=== PATIENT | male | born 1985 | race Caucasian/White ===

== ENCOUNTER 2016-11-25 08:22 | Emergency (ER) | payer OTHER ==
[~2016-11-25] VITALS: Ht 190.5 cm; Wt 91.7 kg
[2016-11-25 08:40] LABS: POINT-OF-CARE METER ID UU13113702
[2016-11-25 09:12] LABS: EOSINOPHIL (%) 8.1 % (0-5); EOSINOPHIL COUNT 0.4 K/uL (0-0.3); HEMATOCRIT 42.5 % (38.0-50.0); IMMATURE GRANULOCYTE (%) 0.4 % (0.0-0.7); INSTRUMENT ABS NEUTROPHIL CT 2.7 K/uL; LYMPHOCYTE COUNT 1.9 K/uL (1.0-2.8); MCH 31.6 PG (29.0-34.0); MCHC 32.9 G/DL (30.0-36.0); MCV 95.9 FL (86-99); MEAN PLAT.VOLUME 9.4 uM^3 (9.0-12.4); MONOCYTE (%) 6.1 % (3-12); MONOCYTE COUNT 0.3 K/uL (0-0.8); NEUTROPHIL (%) 49.9 % (45-76); NEUTROPHIL COUNT 2.7 K/uL (1.8-6.4); PLATELET COUNT 243 K/uL (156-360); RBC DIS.WIDTH-CV 13.6 % (11.8-14.6); RBC DIS.WIDTH-SD 48.4 % (39-53); RED BLOOD COUNT 4.43 M/uL (4.00-5.50); WHITE BLOOD COUNT 5.4 K/uL (4.1-10.2)
[2016-11-25 09:23] LABS: CHLORIDE 109 mEq/L (99-109); POTASSIUM 3.9 mEq/L (3.7-5.4)
[2016-11-25 09:24] LABS: SODIUM 143 mEq/L (136-147)
[2016-11-25 09:25] LABS: GLUCOSE 91 mg/dL (70-99)
[2016-11-25 09:27] LABS: ANION GAP 5 MEQ/L (2-14)
[2016-11-25 09:28] LABS: SERUM ETHYL ALCOHOL < 10 mg/dL
[2016-11-25 09:29] LABS: GFR ESTIMATE (CALCULATED) > 59 mL/min/
[2016-11-25 09:30] LABS: UREA NITROGEN (BUN) 6 mg/dL (9-23)
[2016-11-25 10:52] LABS: BILIRUBIN NEGATIVE; BLOOD NEGATIVE; COLOR YELLOW ((YELLOW)); GLUCOSE (STRIP) NEGATIVE; KETONES NEGATIVE; LEUKOCYTES NEGATIVE; NITRITE NEGATIVE; PROTEIN (STRIP) NEGATIVE; UROBILINOGEN 0.2 MG/DL (0.2-1.0)
[2016-11-25 10:56] LABS: ADD MIUA? NO
[2016-11-25 10:57] VITALS: BP 120/79
[2016-11-25 11:01] LABS: AMPHETAMINE NEGATIVE (500 ng/mL); BARBITURATES NEGATIVE (200 ng/mL); BENZODIAZEPINES NEGATIVE (150 ng/mL); COCAINE NEGATIVE (150 ng/mL); INTERNAL CONTROLS VALID? YES; METHADONE NEGATIVE (200 ng/mL); METHAMPHETAMINE NEGATIVE (500 ng/mL); OPIATES (MORPHINE) NEGATIVE (100 ng/mL); OXYCODONE NEGATIVE (100 ng/mL); PHENCYCLIDINE NEGATIVE (25 ng/mL); PROPOXYPHENE NEGATIVE (300 ng/mL); THC CANNABINOIDS NEGATIVE (50 ng/mL); TRICYCLIC ANTIDEPRESSANTS NEGATIVE (300 ng/mL)
== END 2016-11-25 11:20 | disposition left against medical advice (07) ==
LOC: EME 08:22
PROVIDERS: Emergency Medicine
DX: R56.9 Unspecified convulsions (principal); Z98.2 Presence of cerebrospinal fluid drainage device; F17.200 Nicotine dependence, unspecified, uncomplicated
CPT/HCPCS: 70450; 80048; 81003; 82948; 85025; 93005; 99281; 99285; G0480; J2250

== ENCOUNTER 2016-12-20 00:40 | Emergency (ER) | payer OTHER ==
[~2016-12-20] VITALS: Ht 190.5 cm; Wt 87.1 kg
[2016-12-20 01:53] LABS: HEMATOCRIT 44.5 % (38.0-50.0); MCH 31.6 PG (29.0-34.0); MCHC 33.5 G/DL (30.0-36.0); MCV 94.5 FL (86-99); MEAN PLAT.VOLUME 9.8 uM^3 (9.0-12.4); PLATELET COUNT 317 K/uL (156-360); RBC DIS.WIDTH-CV 13.6 % (11.8-14.6); RBC DIS.WIDTH-SD 47.3 % (39-53); RED BLOOD COUNT 4.71 M/uL (4.00-5.50); WHITE BLOOD COUNT 9.1 K/uL (4.1-10.2)
[2016-12-20 01:59] LABS: CHLORIDE 107 mEq/L (99-109); POTASSIUM 3.8 mEq/L (3.7-5.4); SODIUM 141 mEq/L (136-147)
[2016-12-20 02:01] LABS: GLUCOSE 91 mg/dL (70-99)
[2016-12-20 02:03] LABS: ANION GAP 9 MEQ/L (2-14)
[2016-12-20 02:05] LABS: GFR ESTIMATE (CALCULATED) > 59 mL/min/
[2016-12-20 02:06] LABS: UREA NITROGEN (BUN) 11 mg/dL (9-23)
[2016-12-20 02:11] LABS: TROP-I INTERPRETATION NEGATIVE; TROPONIN-I < 0.01 ng/mL (0.0-0.30)
[2016-12-20] MEDS ORDERED: KEPPRA500 MG PO (02:28)
[2016-12-20 02:47] VITALS: BP 155/87
== END 2016-12-20 02:49 | disposition home or self-care (01) ==
LOC: EME 00:40
DX: G40.909 Epilepsy, unspecified, not intractable, without status epilepticus (principal); R10.9 Unspecified abdominal pain; Z98.2 Presence of cerebrospinal fluid drainage device; F17.200 Nicotine dependence, unspecified, uncomplicated
CPT/HCPCS: 70450; 71020; 74176; 80048; 84484; 85027; 93005; 99281; 99284

== ENCOUNTER 2017-02-05 14:56 | Emergency (ER) | payer OTHER ==
[~2017-02-05] VITALS: Ht 190.5 cm; Wt 87.5 kg
[~2017-02-05 14:56] MED LIST: KEPPRA500 MG PO
[2017-02-05] MEDS ORDERED: ULTRAM50 MG PO (15:19)
[2017-02-05] MEDS ORDERED: BACTRIM,SEPT1 TABLET PO (15:19)
[2017-02-05] MEDS ORDERED: KEFLEX500 MG PO (15:19)
[2017-02-05 15:42] VITALS: BP 154/93
== END 2017-02-05 15:43 | disposition home or self-care (01) ==
LOC: EME 14:56 → EXP 14:56
DX: S70.362A Insect bite (nonvenomous), left thigh, initial encounter (principal); L08.9 Local infection of the skin and subcutaneous tissue, unspecified; W57.XXXA Bitten or stung by nonvenomous insect and other nonvenomous arthropods, initial encounter; F17.200 Nicotine dependence, unspecified, uncomplicated; Z98.2 Presence of cerebrospinal fluid drainage device
CPT/HCPCS: 99281; 99283

== ENCOUNTER 2017-02-08 20:52 | Emergency (ER) | payer OTHER ==
[~2017-02-08] VITALS: Ht 190.5 cm; Wt 87.7 kg
[~2017-02-08 20:52] MED LIST changes: +BACTRIM,SEPT1 TABLET PO; +KEFLEX500 MG PO; +ULTRAM50 MG PO
[2017-02-08] MEDS ORDERED: PERCOCET 5/31 TABLET PO (23:09)
[2017-02-08 23:59] VITALS: BP 159/75
== END 2017-02-09 | disposition home or self-care (01) ==
LOC: EME 20:52 → EXP 20:52
PROC: 0H9JXZZ Drainage of Left Upper Leg Skin, External Approach (ICD-10-PCS; principal; 2017-02-08)
DX: L02.416 Cutaneous abscess of left lower limb (principal); L03.116 Cellulitis of left lower limb; F17.200 Nicotine dependence, unspecified, uncomplicated
CPT/HCPCS: 99281; 99284; J0696; J1885; J7030; J7050

== ENCOUNTER 2017-03-11 12:57 | Emergency (ER) | payer OTHER ==
[~2017-03-11] VITALS: Ht 190.5 cm; Wt 91.0 kg
[~2017-03-11 12:57] MED LIST changes: +PERCOCET 5/31 TABLET PO
[2017-03-11] MEDS ORDERED: NARCAN4 MG NS (13:39)
[2017-03-11 15:07] VITALS: BP 131/89
== END 2017-03-11 15:08 | disposition home or self-care (01) ==
LOC: EME 12:57
DX: F11.10 Opioid abuse, uncomplicated (principal); F17.200 Nicotine dependence, unspecified, uncomplicated
CPT/HCPCS: 99281; 99284; J2310

== ENCOUNTER 2017-05-21 11:27 | Emergency (ER) | payer OTHER ==
[~2017-05-21] VITALS: Ht 190.5 cm; Wt 87.9 kg
[~2017-05-21 11:27] MED LIST changes: +NARCAN4 MG NS
[2017-05-21 13:47] LABS: HEMATOCRIT 42.5 % (38.0-50.0); MCH 31.1 PG (29.0-34.0); MCHC 33.4 G/DL (30.0-36.0); MEAN PLAT.VOLUME 9.4 uM^3 (9.0-12.4); PLATELET COUNT 290 K/uL (156-360); RBC DIS.WIDTH-SD 44.7 % (39-53); RED BLOOD COUNT 4.57 M/uL (4.00-5.50); WHITE BLOOD COUNT 8.1 K/uL (4.1-10.2)
[2017-05-21 13:54] LABS: CHLORIDE 107 mEq/L (99-109); POTASSIUM 3.8 mEq/L (3.7-5.4); SODIUM 139 mEq/L (136-147)
[2017-05-21 13:56] LABS: GLUCOSE 93 mg/dL (70-99)
[2017-05-21 13:58] LABS: ANION GAP 6 MEQ/L (2-14)
[2017-05-21 14:00] LABS: GFR ESTIMATE (CALCULATED) > 59 mL/min/
[2017-05-21 14:01] LABS: UREA NITROGEN (BUN) 8 mg/dL (9-23)
[2017-05-21 14:40] VITALS: BP 158/99
== END 2017-05-21 14:41 | disposition home or self-care (01) ==
LOC: EME 11:27
PROVIDERS: Nurse Practitioner Family
DX: R53.83 Other fatigue (principal); S20.211A Contusion of right front wall of thorax, initial encounter; X58.XXXA Exposure to other specified factors, initial encounter; B34.9 Viral infection, unspecified; J34.89 Other specified disorders of nose and nasal sinuses; R11.2 Nausea with vomiting, unspecified; Z98.2 Presence of cerebrospinal fluid drainage device; F17.200 Nicotine dependence, unspecified, uncomplicated
CPT/HCPCS: 71100; 80048; 85027; 99281; 99283

== ENCOUNTER 2017-07-05 16:43 | Emergency (ER) | payer OTHER ==
[~2017-07-05] VITALS: Ht 190.5 cm; Wt 84.8 kg
[2017-07-05] MEDS ORDERED: NAPROXEN500 MG PO (18:34)
[2017-07-05 18:52] VITALS: BP 145/98
== END 2017-07-05 18:52 | disposition home or self-care (01) ==
LOC: EME 16:43
PROC: 2W3CX1Z Immobilization of Right Lower Arm using Splint (ICD-10-PCS; principal; 2017-07-05)
DX: M21.331 Wrist drop, right wrist (principal)
CPT/HCPCS: 73110; 99281; 99283

== ENCOUNTER 2017-10-30 03:55 | Emergency (ER) | payer OTHER ==
[~2017-10-30] VITALS: Ht 190.5 cm; Wt 84.7 kg
[~2017-10-30 03:55] MED LIST changes: +NAPROXEN500 MG PO
[2017-10-30 05:10] VITALS: BP 113/68
== END 2017-10-30 05:10 | disposition home or self-care (01) ==
LOC: EME 03:55
DX: S20.211A Contusion of right front wall of thorax, initial encounter (principal); V19.40XA Pedal cycle driver injured in collision with unspecified motor vehicles in traffic accident, initial encounter; Y93.55 Activity, bike riding; F17.200 Nicotine dependence, unspecified, uncomplicated
CPT/HCPCS: 71046; 99281; 99283